=== PATIENT | male | born 1975 | race Two or more races ===

== ENCOUNTER 2019-06-01 16:43 | Emergency (ER) | payer OTHER ==
[~2019-06-01] VITALS: Ht 177.8 cm; Wt 94.8 kg
--- NOTE | 2019-06-01 18:01 | NUR ---
PT HERE WITH BILATERAL LEG SWELLING APPROX. 1 WEEK. PT STATES LAST METH USE TODAY. PT DENIES ANY CARDIAC ISSUES. PT DRESSED IN GOWN, ATTACHED TO MONITOR, NAD, ROOM AIR, CALL LIGHT WITHIN REACH. SIDERAIL X [address] XRAY COMPLETED.
[2019-06-01 18:08] VITALS: BP 127/100
--- NOTE | 2019-06-01 18:09 | NUR ---
RADIOLOGY EXAM COMPLETED.
[2019-06-01 18:24] LABS: BASOPHILS # (AUTO) 0.03 x10^3/uL (0-0.1); BASOPHILS % (AUTO) 1 % (0-1); EOSINOPHILS # (AUTO) 0.13 x10^3/uL (0-0.4); EOSINOPHILS % (AUTO) 2 % (1-7); LYMPHOCYTES # (AUTO) 1.34 x10^3/uL (1-3.4); LYMPHOCYTES % (AUTO) 23 % (22-44); MD NO; MEAN CORPUSCULAR HEMOGLOBIN 30.1 pg (27.5-34.5); MEAN CORPUSCULAR HGB CONC 32.2 g/dL (33.2-36.2); MEAN CORPUSCULAR VOLUME 93.4 fL (81-97); MEAN PLATELET VOLUME 6.8 fL (7.4-10.4); MONOCYTES # (AUTO) 0.74 x10^3/uL (0.2-0.8); MONOCYTES % (AUTO) 13 % (2-9); NEUTROPHILS % (AUTO) 62 % (42-75); PLATELET COUNT 322 x10^3/uL (130-400); RED BLOOD COUNT 4.78 x10^6/uL (4.38-5.82); RED CELL DISTRIBUTION WIDTH 15.7 % (9.4-14.8)
[2019-06-01 18:30] LABS: ALBUMIN 3.7 g/dL (3.4-5.0); ANION GAP 7 mmol/L (5-15); CHLORIDE 109 mmol/L (98-107)
[2019-06-01 18:36] LABS: ALANINE AMINOTRANSFERASE 33 U/L (12-78); ALKALINE PHOSPHATASE 84 U/L (45-117); BILIRUBIN,TOTAL 0.3 mg/dL (0.2-1.0); CREATININE 1.09 mg/dL (0.7-1.3); TOTAL PROTEIN 6.8 g/dL (6.4-8.2)
--- NOTE | 2019-06-01 19:13 | NUR ---
AT BEDSIDE FOR REASSESSMENT.
--- NOTE | 2019-06-01 19:55 | NUR ---
Patient/Caregiver given discharge instructions and they have confirmed that they understand the instructions. Patient ambulatory with steady gait.
== END 2019-06-01 20:04 | disposition home or self-care (01) ==
LOC: ED 18:54
DX: R60.0 Localized edema (principal); F15.10 Other stimulant abuse, uncomplicated
CPT/HCPCS: 36415; 71045; 80053; 83880; 85025; 93005; 99284